=== PATIENT | male | born 1985 | race Caucasian/White ===

== ENCOUNTER 2021-02-17 14:10 | Inpatient (IN) | payer OTHER ==
[~2021-02-17] VITALS: Ht 182.9 cm; Wt 100.5 kg
[2021-02-17] MEDS ORDERED: NAPR220 PO (14:24)
[2021-02-17 15:53] LABS: Hematocrit 40.3 % (37.0-53.0); Hemoglobin 13.5 g/dL (13.5-17.5); Mean Corpuscular HGB 29.4 pg (26.0-34.0); Mean Corpuscular HGB Conc 33.5 g/dL (31.5-36.5); Mean Corpuscular Volume 88 fL (80-100); Mean Platelet Volume 9.1 fL (9.1-12.4); Platelet Count 366 K/mm3 (150-400); RDW Coefficient Variation 13.3 % (11.7-14.2); RDW Standard Deviation 42.7 fL (35.1-46.3); Red Blood Cell Count 4.59 M/mm3 (4.30-5.90); White Blood Cell Count 9.15 K/mm3 (4.00-11.30)
[2021-02-17 16:10] LABS: Alanine Aminotransfer (ALT/SGP 44 U/L (12-78); Albumin, Blood 2.6 g/dL (3.4-5.0); Albumin/Globulin Ratio 0.5 (0.8-1.8); Alk Phos 57 U/L (50-136); Anion Gap 10 mmol/L (6-16); Aspartate Aminotrans (AST/SGOT 62 U/L (12-37); Bilirubin, Total 0.9 mg/dL (0.1-1.0); Blood Urea Nitrogen 15 mg/dL (8-24); Bun/Creatinine Ratio 15.3 (12.0-20.0); CO2, Blood 26 mmol/L (21-32); Calcium, Blood 8.2 mg/dL (8.5-10.1); Chloride, Blood 101 mmol/L (98-108); Creatinine, Blood 0.98 mg/dL (0.60-1.20); Globulin, Blood 5.1 g/dL (2.2-4.0); Glomerular Filtration Rate >60 (60-); Glucose, Blood 106 mg/dL (70-99); Potassium, Blood 3.7 mmol/L (3.5-5.5); Sodium, Blood 137 mmol/L (136-145); Total Protein, Blood 7.7 g/dL (6.4-8.2); Troponin I <0.015 ng/mL (0.000-0.040)
[2021-02-17 16:17] LABS: BASOPHILS PERCENT MAN 0 % (0-2); EOSINOPHILS PERCENT MAN 0 % (0-6); LYMPHOCYTES % ATYPICAL MANUAL 1 % (0-0); LYMPHOCYTES ABSOLUTE MAN 1.37 K/mm3 (0.84-5.20); LYMPHOCYTES PERCENT MAN 14 % (21-46); MONOCYTES ABSOLUTE MAN 0.64 K/mm3 (0.16-1.47); MONOCYTES PERCENT MAN 7 % (4-13); NEUTROPHILS ABSOLUTE MAN 7.13 K/mm3 (1.96-9.15); SEG NEUTROPHILS PERCENT MAN 78 % (41-73); TOTAL CELLS COUNTED 100
--- NOTE | 2021-02-17 20:45 | NUR ---
RECEIVED REPORT FROM SOMMERED RN. PT TRANSPORTED TO MEDICAL FLOOR VIA GURNEY, TRANSFERRED TO BED. VS TAKEN, WNL. O2 SATS STABLE ON 15L/NRB, SATTING 90-93%. NO ACUTE NEEDS ASSESSED AT THIS TIME. CALL LIGHT, POSSESSIONS IN REACH.
--- NOTE | 2021-02-18 06:40 | NUR ---
SHIFT SUMMARY PT RESTING, IN NAD. NO ACUTE CONCERNS TO REPORT OVERNIGHT, O2 SATS STABLE ON 15L/NRB, SATTING 90-94%. DE-SATS TO LOW 70'S WHEN UP TO BATHROOM, BUT RECOVERS ONCE NRB IS RE APPLIED. DENIES PAIN OR DISCOMFORT. INDEPENDENT IN ROOM. NO ACUTE NEEDS ASSESSED AT THIS TIME. CALL LIGHT, POSSESSIONS IN REACH, BED IN LOW POSITION. WILL REPORT OFF TO ONCOMING RN.
--- NOTE | 2021-02-18 18:28 | NUR ---
P IS COVID POSITIVE,PT IS AO X 4,PT HAVE NO ACUTE CHANGE T/O THEE SHIFT,PT IS ON 15L NRB,PT IS BEEN PRONING,PT IS BED,CALL LIGHT WITHIN REACH WILL CONTINUE TO MONITOR.
--- NOTE | 2021-02-18 19:20 | NUR ---
ASSUMED CARE RECEIVED REPORT FROM CAYLA MARSHALL. PT RESTING, IN NAD. 02 SATS STABLE ON 15L/NRB. NO ACUTE NEEDS ASSESSED AT THIS TIME. CALL LIGHT IN REACH.
--- NOTE | 2021-02-19 06:38 | NUR ---
SHIFT SUMMARY PT RESTING, IN NAD. APPEARED TO SLEEP WELL T/O NIGHT. LIED ON SIDE/PRONED T/O NIGHT, O2 SATS STABLE IN MID 90'S; DESATS TO 80'S WITH ACTIVITY. VS WNL OTHERWISE. HR HAS BEEN TRENDING IN THE 50'S, OCCASIONALLY TOUCHES DOWN TO HIGH 30'S, PER MAIL SORTING SUPERVISOR. PT ASYMPTOMATIC; BP'S STABLE. NO OTHER ACUTE CONCERNS TO REPORT OVERNIGHT. PT INDEPENDENT IN ROOM. CALL LIGHT AND POSSESSIONS IN REACH. WILL REPORT OFF TO ONCOMING RN.
--- NOTE | 2021-02-19 18:09 | NUR ---
PT IS ALERT ORIENTED X 4,PT IS ON 9L OF OXYMIZER SATS IN 90'S WHEN PRONING OR LYING ON THE RIGHT SIDE,PT HAS NO ACUTE CHANGES T/O SHIFT,PT IS BED,PT IS COVID POSITIVE,BED IN LOW POSITION WILL CONTINUE TO MONIOR.
[2021-02-20 04:38] LABS: BASOPHILS ABSOLUTE AUTO 0.05 K/mm3 (0.00-0.23); BASOPHILS PERCENT AUTO 0 % (0-2); EOSINOPHILS PERCENT AUTO 0 % (0-6); Hematocrit 44.6 % (37.0-53.0); Hemoglobin 14.3 g/dL (13.5-17.5); IMMATURE GRAN ABSOLUTE AUTO 0.34 K/mm3 (0.00-0.10); IMMATURE GRAN PERCENT AUTO 3 % (0-1); LYMPHOCYTES ABSOLUTE AUTO 1.82 K/mm3 (0.84-5.20); LYMPHOCYTES PERCENT AUTO 14 % (21-46); MONOCYTES ABSOLUTE AUTO 1.35 K/mm3 (0.16-1.47); MONOCYTES PERCENT AUTO 10 % (4-13); Mean Corpuscular HGB Conc 32.1 g/dL (31.5-36.5); Mean Corpuscular Volume 91 fL (80-100); Mean Platelet Volume 9.9 fL (9.1-12.4); NEUTROPHILS ABSOLUTE AUTO 9.69 K/mm3 (1.96-9.15); NEUTROPHILS PERCENT AUTO 73 % (41-73); Platelet Count 513 K/mm3 (150-400); RDW Coefficient Variation 13.3 % (11.7-14.2); RDW Standard Deviation 44.5 fL (35.1-46.3); Red Blood Cell Count 4.93 M/mm3 (4.30-5.90); White Blood Cell Count 13.25 K/mm3 (4.00-11.30)
--- NOTE | 2021-02-20 04:44 | NUR ---
PATIENT BRADYCARDIC WHEN ASLEEP. HR BETWEEN 39-45. NONSYMPTOMATIC. HEARTRATE IN 50S-60S SOON HE IS AWAKEN. PATIENT ON 14.5 LITERS NON REBREATHERS.OXYGEN IN 90S.
[2021-02-20 05:25] LABS: Alanine Aminotransfer (ALT/SGP 74 U/L (12-78); Albumin, Blood 2.6 g/dL (3.4-5.0); Albumin/Globulin Ratio 0.5 (0.8-1.8); Alk Phos 61 U/L (50-136); Anion Gap 8 mmol/L (6-16); Aspartate Aminotrans (AST/SGOT 44 U/L (12-37); Bilirubin, Total 0.5 mg/dL (0.1-1.0); Blood Urea Nitrogen 20 mg/dL (8-24); Bun/Creatinine Ratio 22.7 (12.0-20.0); CO2, Blood 26 mmol/L (21-32); Calcium, Blood 8.3 mg/dL (8.5-10.1); Chloride, Blood 107 mmol/L (98-108); Creatinine, Blood 0.88 mg/dL (0.60-1.20); Globulin, Blood 4.8 g/dL (2.2-4.0); Glomerular Filtration Rate >60 (60-); Glucose, Blood 112 mg/dL (70-99); Potassium, Blood 4.5 mmol/L (3.5-5.5); Sodium, Blood 141 mmol/L (136-145); Total Protein, Blood 7.4 g/dL (6.4-8.2)
--- NOTE | 2021-02-20 18:22 | NUR ---
PT IS AO X 4,PT IS COVID POSITIVE,PT ASSESSMENT REMAINS UNCHANGE,PT IS ON 11L HUMIDIFIER,PT IS IN BED,BED IN LOW POSITION,CALL IN REACH.
--- NOTE | 2021-02-21 04:38 | NUR ---
SHIFT SUMMARY A/OX4, IND IN ROOM. CURRENTLY ON 11L HIGH FLOW WITH SATS GREATER THAN 92. TELE SB MID 40S TO 60S. VSS, NO ACUTE CHANGES AT THIS TIME. BED IN LOWEST POSITION WITH CALL LIGHT IN REACH. WILL CONTINUE TO MONITOR AND REPORT TO ONCOMING RN.
[2021-02-22 05:41] LABS: Hematocrit 48.7 % (37.0-53.0); Mean Corpuscular HGB 29.4 pg (26.0-34.0); Mean Corpuscular HGB Conc 32.9 g/dL (31.5-36.5); Mean Corpuscular Volume 90 fL (80-100); Mean Platelet Volume 9.6 fL (9.1-12.4); Platelet Count 592 K/mm3 (150-400); RDW Coefficient Variation 13.3 % (11.7-14.2); Red Blood Cell Count 5.44 M/mm3 (4.30-5.90); White Blood Cell Count 12.88 K/mm3 (4.00-11.30)
[2021-02-22 06:05] LABS: BASOPHILS PERCENT MAN 0 % (0-2); EOSINOPHILS PERCENT MAN 0 % (0-6); LYMPHOCYTES ABSOLUTE MAN 1.93 K/mm3 (0.84-5.20); LYMPHOCYTES PERCENT MAN 15 % (21-46); METAMYELOCYTE ABSOLUTE MAN 0.12 K/mm3 (0.00-0.00); METAMYELOCYTE PERCENT MAN 1 % (0-0); MONOCYTES ABSOLUTE MAN 1.41 K/mm3 (0.16-1.47); MONOCYTES PERCENT MAN 11 % (4-13); SEG NEUTROPHILS PERCENT MAN 73 % (41-73); TOTAL CELLS COUNTED 100
[2021-02-22 06:06] LABS: Alanine Aminotransfer (ALT/SGP 92 U/L (12-78); Albumin, Blood 2.9 g/dL (3.4-5.0); Albumin/Globulin Ratio 0.6 (0.8-1.8); Alk Phos 64 U/L (50-136); Anion Gap 6 mmol/L (6-16); Aspartate Aminotrans (AST/SGOT 42 U/L (12-37); Bilirubin, Total 0.5 mg/dL (0.1-1.0); Blood Urea Nitrogen 21 mg/dL (8-24); CO2, Blood 27 mmol/L (21-32); Calcium, Blood 9.1 mg/dL (8.5-10.1); Chloride, Blood 105 mmol/L (98-108); Globulin, Blood 4.9 g/dL (2.2-4.0); Glomerular Filtration Rate >60 (60-); Glucose, Blood 129 mg/dL (70-99); Potassium, Blood 4.9 mmol/L (3.5-5.5); Sodium, Blood 138 mmol/L (136-145); Total Protein, Blood 7.8 g/dL (6.4-8.2)
--- NOTE | 2021-02-22 06:22 | NUR ---
PATIENT MAINTAINED OXYGEN WELL OVERNIGHT ON 3-4 LITERS, HOWEVER, THIS MORNING HIS OXYGEN DROPPED TO 70S WHEN HE BRIEFLY REMOVED HIS OXYGEN TO CLEAN HIS NOSE AND HAD A DIFFICULT TIME REACHING 90% ON 3 LITERS. TITRATED OXYGEN UP TO 5 LITERS. WAS UNABLE TO WEAN BACK DOWN. CURRENTLY HIS OXYGEN LEVELS ARE BETEWEEN 89%-93% ON 5LITERS. NO VISIBLE SIGNS OF ANY DISTRESS PRESENT.
--- NOTE | 2021-02-22 08:27 | NUR ---
OXYGEN EVAL. ON ROOM AIR SATURATIONS 83%. PATIENT TITRATED TO 3L NC AT REST TO MAINTAIN SATURATIONS 90%. SATURATIONS MAINTAINED WHILE AMBULATING ON 3L NC.
--- NOTE | 2021-02-22 11:48 | NUR ---
SPOKE WITH ELIUD AT MD. PATIENT HAS NOT BEEN ASSIGNED A PCP AND NEEDS TO ENROLL. RECOMMENDS PATIENT BE SEEN AT URGENT CARE. CASE MANAGEMENT AND PATIENT NOTIFIED.
[2021-02-22] MEDS ORDERED: ACET325 PO (12:03)
[2021-02-22] MEDS ORDERED: ASCO500 PO (12:03)
[2021-02-22] MEDS ORDERED: ALBU2.5V5 INH (12:04)
[2021-02-22] MEDS ORDERED: BENZ100A PO (12:04)
[2021-02-22] MEDS ORDERED: DEXA4 PO (12:07)
[2021-02-22] MEDS ORDERED: ONDA4ODT MM (12:07)
[2021-02-22] MEDS ORDERED: PANT20 PO (12:08)
[2021-02-22] MEDS ORDERED: VISBIOME 112.51 EACH PO (12:09)
[2021-02-22] MEDS ORDERED: VITAMIN D5000 UNIT PO (12:09)
[2021-02-22] MEDS ORDERED: ZINC220 PO (12:10)
--- NOTE | 2021-02-22 13:58 | NUR ---
DISCHARGED HOME AT 1250. ALL QUESTIONS ANSWERED AND TEACHBACK METHOD UTILIZED.
== END 2021-02-22 12:52 | disposition home or self-care (01) | DRG 177 ==
LOC: ER 14:10 → ERHOLD 18:30 → MEDS 18:30
PROVIDERS: Family Medicine; Internal Medicine; Physician Assistant; ADMIT Internal Medicine
PROC: 8E0ZXY6 Isolation (ICD-10-PCS; principal; 2021-02-17)
PROC: XW033E5 Introduction of Remdesivir Anti-infective into Peripheral Vein, Percutaneous Approach, New Technology Group 5 (ICD-10-PCS; 2021-02-17)
PROC: 3E0DX3Z Introduction of Anti-inflammatory into Mouth and Pharynx, External Approach (ICD-10-PCS; 2021-02-17)
PROC: 5A0955A Assistance with Respiratory Ventilation, Greater than 96 Consecutive Hours, High Flow/Velocity Cannula (ICD-10-PCS; 2021-02-17)
DX: U07.1 COVID-19 (principal); J96.01 Acute respiratory failure with hypoxia; J12.82 Pneumonia due to coronavirus disease 2019; K76.0 Fatty (change of) liver, not elsewhere classified; R74.01 Elevation of levels of liver transaminase levels; Z23 Encounter for immunization
CPT/HCPCS: 36415; 71045; 71260; 80053; 84145; 84484; 85025; 85379; 93005; 93010; 94761; 94762; 96365; 96375; 99285-25; A9270; C9113; J1100; J1650; J7050; Q9967